=== PATIENT | male | born 1970 | race African-American/Black ===

== ENCOUNTER 2018-09-21 22:13 | Emergency (ER) | payer BC ==
[~2018-09-21] VITALS: Ht 185.4 cm; Wt 118.2 kg
[2018-09-21] MEDS ORDERED: PIOG30TA10 PO (22:25)
[2018-09-21] MEDS ORDERED: LISI-662 PO (22:25)
[2018-09-21] MEDS ORDERED: METF-960 PO (22:25)
[2018-09-21] MEDS ORDERED: AMLO-512 PO (22:25)
[2018-09-21] MEDS ORDERED: GLIP10 PO (22:25)
[2018-09-21] MEDS ORDERED: ATOR40TA28 PO (22:27)
[2018-09-21] MEDS ORDERED: ACETAMINOPHEN 500 MG TABLET PO ONE (23:00)
[2018-09-21] MEDS ORDERED: SODIUM CHLORIDE 0.9% 1,000 ML IV ONE (23:00)
[2018-09-22 00:08] LABS: INFLUENZA TYPE A NEGATIVE FOR TYPE A (NEGATIVE); INFLUENZA TYPE B NEGATIVE FOR TYPE B (NEGATIVE)
[2018-09-22] MEDS ORDERED: AZITHROMYCIN 250 MG TABLET PO ONE (00:15)
[2018-09-22] MEDS ORDERED: BENZONATATE 100 MG CAPSULE PO ONE (00:30)
[2018-09-22 00:55] VITALS: BP 148/97
== END 2018-09-22 01:00 | disposition home or self-care (01) ==
LOC: EMS 22:14
DX: J18.9 Pneumonia, unspecified organism (principal); E11.9 Type 2 diabetes mellitus without complications; E78.00 Pure hypercholesterolemia, unspecified; I10 Essential (primary) hypertension; Z79.899 Other long term (current) drug therapy; Z88.0 Allergy status to penicillin; Z88.8 Allergy status to other drugs, medicaments and biological substances; Z91.030 Bee allergy status
CPT/HCPCS: 71045; 87804; 99284; J7030

== ENCOUNTER 2020-12-25 10:47 | Inpatient (IN) | payer MEDICAID ==
[~2020-12-25] VITALS: Ht 188 cm; Wt 98.4 kg
[~2020-12-25 10:47] MED LIST: AMLO-258 PO; ATOR40TA28 PO; GLIP10 PO; LISI-894 PO; METF-960 PO; PIOG30TA10 PO
[2020-12-25 11:30] VITALS: BP 125/79
[2020-12-25] MEDS ORDERED: MELATONIN 5 MG TABLET PO PRN (12:30)
[2020-12-25] MEDS ORDERED: DEXTROSE 50%-WATER 25 GM/50 ML SYRINGE IVP PRN (12:45)
[2020-12-25] MEDS ORDERED: ALBUTEROL SULFATE HFA 90 MCG/PUFF 8 GM INHALER IH PRN (12:45)
[2020-12-25 13:12] LABS: GLUCOMETER DEV NAME(LOC) 2WR.2B; GLUCOSE,POINT OF CARE 226 MG/DL (70-110)
[2020-12-25] MEDS: DOCUSATE SODIUM 100 MG CAPSULE PO SCH ×2 (14:07→20:55)
[2020-12-25] MEDS: INSULIN LISPRO 100 UNITS/ML SQ PRN ×3 (15:01→21:02)
[2020-12-25 16:00] VITALS: BP 121/86
[2020-12-25] MEDS: GlipiZIDE 10 MG TABLET PO SCH (17:44)
[2020-12-25] MEDS: MetFORMIN HCL 500 MG TABLET PO SCH (17:44)
[2020-12-25] MEDS: RIVAROXABAN 15 MG TABLET PO SCH (17:45)
[2020-12-25 18:33] LABS: GLUCOMETER DEV NAME(LOC) 2WR.1C; GLUCOSE,POINT OF CARE 262 MG/DL (70-110)
[2020-12-25] MEDS: SENNA 187 MG TABLET PO SCH (20:55)
[2020-12-25] MEDS: FAMOTIDINE 20 MG TABLET PO SCH (20:55)
[2020-12-25] MEDS: ETHYL ALCOHOL 62% ANTISEPTIC NASAL INHALANT 0.6 ML AMPUL NASAL SCH (21:05)
[2020-12-26 05:29] LABS: GLUCOMETER DEV NAME(LOC) 2WR.1C; GLUCOSE,POINT OF CARE 183 MG/DL (70-110)
[2020-12-26 06:07] VITALS: BP 117/77
[2020-12-26 06:14] LABS: GLUCOMETER DEV NAME(LOC) 2WR.1C; GLUCOSE,POINT OF CARE 144 MG/DL (70-110)
[2020-12-26] MEDS ORDERED: CLOPIDOGREL BISULFATE 75 MG TABLET PO SCH (08:00)
[2020-12-26] MEDS: MetFORMIN HCL 500 MG TABLET PO SCH ×2 (08:07→17:18)
[2020-12-26] MEDS: GlipiZIDE 10 MG TABLET PO SCH ×2 (08:08→17:17)
[2020-12-26] MEDS: DOCUSATE SODIUM 100 MG CAPSULE PO SCH ×2 (08:08→20:37)
[2020-12-26] MEDS: RIVAROXABAN 15 MG TABLET PO SCH ×2 (08:08→17:17)
[2020-12-26] MEDS: AmLODIPine BESYLATE 10 MG TABLET PO SCH (08:08)
[2020-12-26] MEDS: PIOGLITAZONE HCL 30 MG TABLET PO SCH (08:09)
[2020-12-26] MEDS: LISINOPRIL 20 MG TABLET PO SCH (08:09)
[2020-12-26] MEDS: FAMOTIDINE 20 MG TABLET PO SCH ×2 (08:09→20:37)
[2020-12-26] MEDS: PRAVASTATIN SODIUM 10 MG TABLET PO SCH (08:09)
[2020-12-26] MEDS: ETHYL ALCOHOL 62% ANTISEPTIC NASAL INHALANT 0.6 ML AMPUL NASAL SCH ×2 (08:12→20:37)
[2020-12-26] MEDS: UBIDECARENONE 100 MG CAPSULE PO SCH (09:00)
[2020-12-26] MEDS: INSULIN LISPRO 100 UNITS/ML SQ PRN (09:18)
[2020-12-26 12:03] LABS: BASOPHILS % (AUTO) 0.6 % (0.0-2.0); EOSINOPHILS % (AUTO) 5.9 % (1.0-6.0); HEMATOCRIT 38.7 % (41-53); HEMOGLOBIN 12.5 g/dL (13.5-17.5); LYMPHOCYTES # (AUTO) 1.6 K/uL (1.0-4.8); MEAN CORPUSCULAR HEMOGLOBIN 26.9 pg (26.0-34.0); MEAN CORPUSCULAR HGB CONC 32.4 G/dL (31.0-37.0); MEAN CORPUSCULAR VOLUME 83 fL (80-100); MONOCYTES # (AUTO) 0.5 K/uL (0.1-1.0); NEUTROPHILS # (AUTO) 2.5 K/uL (1.8-7.7); NEUTROPHILS % (AUTO) 51.5 % (40.0-70.0); PLATELET COUNT (AUTO) 170 K/uL (150-450); RED BLOOD CELL COUNT(AUTO) 4.65 MIL/uL (4.50-5.90); RED CELL DISTRIBUTION WIDTH 13.5 % (11.5-14.5)
[2020-12-26 12:23] LABS: GLUCOMETER DEV NAME(LOC) 2WR.2B; GLUCOSE,POINT OF CARE 123 MG/DL (70-110)
[2020-12-26 12:36] LABS: ALANINE AMINOTRANSFERASE 29 U/L (12-78); ALKALINE PHOSPHATASE 109 U/L (46-116); ANION GAP 11 mmol/L (8-16); ASPARTATE AMINOTRANSFERASE 15 U/L (15-37); BILIRUBIN,TOTAL 0.3 mg/dL (0.1-1.0); CALCIUM, TOTAL 9.1 mg/dL (8.8-10.5); CARBON DIOXIDE 27 mmol/L (22-29); CHLORIDE 101 mmol/L (98-107); CHOL/HDL RATIO 7.1 (4.2-7.3); CHOLESTEROL 283 mg/dL (131-200); CREATINE KINASE, TOTAL ONLY 135 U/L (39-308); CREATININE 1.07 mg/dL (0.60-1.30); GLOMERULAR FILTR. RATE CALC > 60 mL/min (>60); GLUCOSE,RANDOM 132 mg/dL (70-110); HDL CHOLESTEROL 40 mg/dL (40-60); LDL CHOL (CALC.) 225 mg/dL (0-130); POTASSIUM 5.1 mmol/L (3.5-5.1); SODIUM SERUM 139 mmol/L (136-145); TOTAL PROTEIN, SERUM 7.2 g/dL (6.4-8.2); TRIGLYCERIDES 88 mg/dL (15-150); UREA NITROGEN, BLOOD 22 mg/dL (7-18)
[2020-12-26] MEDS: ACETAMINOPHEN 325 MG TABLET PO PRN ×2 (14:18→18:59)
[2020-12-26 15:19] VITALS: BP 121/62
[2020-12-26] MEDS: SENNA 187 MG TABLET PO SCH (20:37)
[2020-12-27 05:28] LABS: GLUCOMETER DEV NAME(LOC) 2WR.1C; GLUCOSE,POINT OF CARE 81 MG/DL (70-110)
[2020-12-27 05:48] VITALS: BP 115/73
[2020-12-27 07:17] LABS: GLUCOMETER DEV NAME(LOC) 2WR.2B; GLUCOSE,POINT OF CARE 68 MG/DL (70-110)
[2020-12-27] MEDS: MetFORMIN HCL 500 MG TABLET PO SCH ×2 (08:36→17:11)
[2020-12-27] MEDS: PRAVASTATIN SODIUM 10 MG TABLET PO SCH (08:37)
[2020-12-27] MEDS: FAMOTIDINE 20 MG TABLET PO SCH ×2 (08:37→20:55)
[2020-12-27] MEDS: PIOGLITAZONE HCL 30 MG TABLET PO SCH (08:37)
[2020-12-27] MEDS: RIVAROXABAN 15 MG TABLET PO SCH ×2 (08:38→17:11)
[2020-12-27] MEDS: DOCUSATE SODIUM 100 MG CAPSULE PO SCH ×2 (08:38→20:55)
[2020-12-27] MEDS: AmLODIPine BESYLATE 10 MG TABLET PO SCH (08:38)
[2020-12-27] MEDS: GlipiZIDE 10 MG TABLET PO SCH ×2 (08:38→17:11)
[2020-12-27] MEDS: LISINOPRIL 20 MG TABLET PO SCH (08:39)
[2020-12-27] MEDS: ETHYL ALCOHOL 62% ANTISEPTIC NASAL INHALANT 0.6 ML AMPUL NASAL SCH ×2 (08:39→20:55)
[2020-12-27] MEDS ORDERED: UBIDECARENONE 100 MG CAPSULE PO SCH (09:00)
[2020-12-27] MEDS: UBIDECARENONE 100 MG CAPSULE PO SCH (09:00)
[2020-12-27 09:20] VITALS: BP 120/66
[2020-12-27 17:00] VITALS: BP 96/65
[2020-12-27 18:20] LABS: GLUCOMETER DEV NAME(LOC) 2WR.1C; GLUCOSE,POINT OF CARE 63 MG/DL (70-110)
[2020-12-27 18:20] LABS: GLUCOMETER DEV NAME(LOC) 2WR.1C; GLUCOSE,POINT OF CARE 87 MG/DL (70-110)
[2020-12-27 19:15] LABS: GLUCOMETER DEV NAME(LOC) 2WR.2B; GLUCOSE,POINT OF CARE 74 MG/DL (70-110)
[2020-12-27 19:15] LABS: GLUCOMETER DEV NAME(LOC) 2WR.2B; GLUCOSE,POINT OF CARE 72 MG/DL (70-110)
[2020-12-27] MEDS: SENNA 187 MG TABLET PO SCH (20:56)
[2020-12-27 21:00] LABS: GLUCOMETER DEV NAME(LOC) 2WR.2B; GLUCOSE,POINT OF CARE 128 MG/DL (70-110)
[2020-12-27 23:23] LABS: GLUCOMETER DEV NAME(LOC) 2WR.1C; GLUCOSE,POINT OF CARE 120 MG/DL (70-110)
[2020-12-28 04:50] VITALS: BP 131/70
[2020-12-28 05:45] LABS: GLUCOMETER DEV NAME(LOC) 2WR.1C; GLUCOSE,POINT OF CARE 71 MG/DL (70-110)
[2020-12-28 08:00] VITALS: BP 119/78
[2020-12-28] MEDS: GlipiZIDE 10 MG TABLET PO SCH ×2 (08:30→17:23)
[2020-12-28] MEDS: RIVAROXABAN 15 MG TABLET PO SCH ×2 (08:30→17:30)
[2020-12-28] MEDS: MetFORMIN HCL 500 MG TABLET PO SCH ×2 (08:30→17:31)
[2020-12-28] MEDS: PIOGLITAZONE HCL 30 MG TABLET PO SCH (08:31)
[2020-12-28] MEDS: DOCUSATE SODIUM 100 MG CAPSULE PO SCH ×2 (08:31→20:33)
[2020-12-28] MEDS: AmLODIPine BESYLATE 10 MG TABLET PO SCH (08:31)
[2020-12-28] MEDS: UBIDECARENONE 100 MG CAPSULE PO SCH (08:31)
[2020-12-28] MEDS: ETHYL ALCOHOL 62% ANTISEPTIC NASAL INHALANT 0.6 ML AMPUL NASAL SCH ×2 (08:31→20:33)
[2020-12-28] MEDS: LISINOPRIL 20 MG TABLET PO SCH (08:32)
[2020-12-28] MEDS: FAMOTIDINE 20 MG TABLET PO SCH ×2 (08:32→20:33)
[2020-12-28] MEDS: PRAVASTATIN SODIUM 10 MG TABLET PO SCH (08:32)
[2020-12-28 08:40] VITALS: BP 151/84
[2020-12-28] MEDS: ONDANSETRON HCL 4 MG TABLET PO PRN (13:03)
[2020-12-28 14:01] LABS: GLUCOMETER DEV NAME(LOC) 2WR.2B; GLUCOSE,POINT OF CARE 89 MG/DL (70-110)
[2020-12-28 16:10] VITALS: BP 137/85
[2020-12-28 17:45] LABS: GLUCOMETER DEV NAME(LOC) 2WR.2B; GLUCOSE,POINT OF CARE 100 MG/DL (70-110)
[2020-12-28] MEDS: SENNA 187 MG TABLET PO SCH (20:33)
[2020-12-28 22:11] LABS: GLUCOMETER DEV NAME(LOC) 2WR.2B; GLUCOSE,POINT OF CARE 125 MG/DL (70-110)
[2020-12-29 01:30] VITALS: BP 120/81
[2020-12-29 05:43] LABS: GLUCOMETER DEV NAME(LOC) 2WR.2B; GLUCOSE,POINT OF CARE 103 MG/DL (70-110)
[2020-12-29 08:00] VITALS: BP 127/71
[2020-12-29] MEDS: UBIDECARENONE 100 MG CAPSULE PO SCH (08:13)
[2020-12-29] MEDS: LISINOPRIL 20 MG TABLET PO SCH (08:13)
[2020-12-29] MEDS: ETHYL ALCOHOL 62% ANTISEPTIC NASAL INHALANT 0.6 ML AMPUL NASAL SCH ×2 (08:13→21:09)
[2020-12-29] MEDS: PRAVASTATIN SODIUM 10 MG TABLET PO SCH (08:14)
[2020-12-29] MEDS: FAMOTIDINE 20 MG TABLET PO SCH ×2 (08:14→21:09)
[2020-12-29] MEDS: PIOGLITAZONE HCL 30 MG TABLET PO SCH (08:14)
[2020-12-29] MEDS: GlipiZIDE 10 MG TABLET PO SCH ×2 (08:14→17:27)
[2020-12-29] MEDS: MetFORMIN HCL 500 MG TABLET PO SCH ×2 (08:14→17:27)
[2020-12-29] MEDS: RIVAROXABAN 15 MG TABLET PO SCH ×2 (08:14→17:27)
[2020-12-29] MEDS: AmLODIPine BESYLATE 10 MG TABLET PO SCH (08:14)
[2020-12-29] MEDS: DOCUSATE SODIUM 100 MG CAPSULE PO SCH ×2 (08:19→21:09)
[2020-12-29] MEDS: INSULIN LISPRO 100 UNITS/ML SQ PRN (12:39)
[2020-12-29 12:45] LABS: GLUCOMETER DEV NAME(LOC) 2WR.2B; GLUCOSE,POINT OF CARE 188 MG/DL (70-110)
[2020-12-29 16:30] VITALS: BP 105/67
[2020-12-29 19:18] LABS: GLUCOMETER DEV NAME(LOC) 2WR.2B; GLUCOSE,POINT OF CARE 122 MG/DL (70-110)
[2020-12-29] MEDS: SENNA 187 MG TABLET PO SCH (21:09)
[2020-12-30 00:30] VITALS: BP 109/67
[2020-12-30 05:22] LABS: GLUCOMETER DEV NAME(LOC) 2WR.1C; GLUCOSE,POINT OF CARE 95 MG/DL (70-110)
[2020-12-30 06:29] LABS: GLUCOMETER DEV NAME(LOC) 2WR.1C; GLUCOSE,POINT OF CARE 85 MG/DL (70-110)
[2020-12-30 08:07] VITALS: BP 119/76
[2020-12-30] MEDS: MetFORMIN HCL 500 MG TABLET PO SCH ×2 (08:12→18:34)
[2020-12-30] MEDS: ETHYL ALCOHOL 62% ANTISEPTIC NASAL INHALANT 0.6 ML AMPUL NASAL SCH ×2 (08:12→20:50)
[2020-12-30] MEDS: AmLODIPine BESYLATE 10 MG TABLET PO SCH (08:12)
[2020-12-30] MEDS: LISINOPRIL 20 MG TABLET PO SCH (08:13)
[2020-12-30] MEDS: UBIDECARENONE 100 MG CAPSULE PO SCH (08:13)
[2020-12-30] MEDS: RIVAROXABAN 15 MG TABLET PO SCH ×2 (08:13→18:34)
[2020-12-30] MEDS: FAMOTIDINE 20 MG TABLET PO SCH ×2 (08:13→20:50)
[2020-12-30] MEDS: PIOGLITAZONE HCL 30 MG TABLET PO SCH (08:13)
[2020-12-30] MEDS: GlipiZIDE 10 MG TABLET PO SCH ×2 (08:13→16:30)
[2020-12-30] MEDS: PRAVASTATIN SODIUM 10 MG TABLET PO SCH (08:14)
[2020-12-30] MEDS: DOCUSATE SODIUM 100 MG CAPSULE PO SCH ×2 (08:14→20:50)
[2020-12-30 12:57] LABS: GLUCOMETER DEV NAME(LOC) 2WR.2B; GLUCOSE,POINT OF CARE 115 MG/DL (70-110)
[2020-12-30 17:00] VITALS: BP 121/74
[2020-12-30] MEDS: INSULIN LISPRO 100 UNITS/ML SQ PRN (18:35)
[2020-12-30 19:52] LABS: GLUCOMETER DEV NAME(LOC) 2WR.2B; GLUCOSE,POINT OF CARE 155 MG/DL (70-110)
[2020-12-30] MEDS: SENNA 187 MG TABLET PO SCH (20:51)
[2020-12-30 22:24] LABS: GLUCOMETER DEV NAME(LOC) 2WR.2B; GLUCOSE,POINT OF CARE 90 MG/DL (70-110)
[2020-12-31 00:19] VITALS: BP 98/63
[2020-12-31 06:03] LABS: GLUCOMETER DEV NAME(LOC) 2WR.2B; GLUCOSE,POINT OF CARE 76 MG/DL (70-110)
[2020-12-31] MEDS: MetFORMIN HCL 500 MG TABLET PO SCH ×2 (08:06→18:25)
[2020-12-31] MEDS: RIVAROXABAN 15 MG TABLET PO SCH ×2 (08:06→18:25)
[2020-12-31] MEDS: GlipiZIDE 10 MG TABLET PO SCH ×2 (08:06→16:30)
[2020-12-31] MEDS: UBIDECARENONE 100 MG CAPSULE PO SCH (09:07)
[2020-12-31] MEDS: ETHYL ALCOHOL 62% ANTISEPTIC NASAL INHALANT 0.6 ML AMPUL NASAL SCH ×2 (09:07→21:34)
[2020-12-31] MEDS: LISINOPRIL 20 MG TABLET PO SCH (09:08)
[2020-12-31] MEDS: AmLODIPine BESYLATE 10 MG TABLET PO SCH (09:08)
[2020-12-31] MEDS: DOCUSATE SODIUM 100 MG CAPSULE PO SCH (09:08)
[2020-12-31] MEDS: FAMOTIDINE 20 MG TABLET PO SCH ×2 (09:09→21:33)
[2020-12-31] MEDS: PRAVASTATIN SODIUM 10 MG TABLET PO SCH (09:09)
[2020-12-31] MEDS: INSULIN LISPRO 100 UNITS/ML SQ PRN (12:25)
[2020-12-31 12:39] VITALS: BP 114/70
[2020-12-31 14:20] LABS: GLUCOMETER DEV NAME(LOC) 2WR.1C; GLUCOSE,POINT OF CARE 167 MG/DL (70-110)
[2020-12-31 16:05] VITALS: BP 97/70
[2020-12-31 18:09] LABS: GLUCOMETER DEV NAME(LOC) 2WR.2B; GLUCOSE,POINT OF CARE 60 MG/DL (70-110)
[2020-12-31 18:09] LABS: GLUCOMETER DEV NAME(LOC) 2WR.2B; GLUCOSE,POINT OF CARE 71 MG/DL (70-110)
[2020-12-31] MEDS: MAGNESIUM HYDROXIDE SUSPENSION 30 ML UDCUP PO PRN (18:25)
[2020-12-31] MEDS: ACETAMINOPHEN 325 MG TABLET PO PRN (18:26)
[2020-12-31 18:55] LABS: GLUCOMETER DEV NAME(LOC) 2WR.2B; GLUCOSE,POINT OF CARE 90 MG/DL (70-110)
[2020-12-31 19:26] VITALS: BP 132/75
[2020-12-31] MEDS: SENNA 187 MG TABLET PO SCH (21:33)
[2020-12-31] MEDS: DOCUSATE SODIUM 250 MG CAPSULE PO SCH (21:39)
[2020-12-31 22:38] LABS: GLUCOMETER DEV NAME(LOC) 2WR.1C; GLUCOSE,POINT OF CARE 83 MG/DL (70-110)
[2021-01-01 05:49] VITALS: BP 103/55
[2021-01-01] MEDS: MetFORMIN HCL 500 MG TABLET PO SCH ×2 (07:16→17:30)
[2021-01-01] MEDS: RIVAROXABAN 15 MG TABLET PO SCH ×2 (07:16→17:30)
[2021-01-01] MEDS: GlipiZIDE 10 MG TABLET PO SCH (07:16)
[2021-01-01] MEDS ORDERED: DOCUSATE SODIUM 250 MG CAPSULE PO SCH (09:00)
[2021-01-01 09:10] VITALS: BP 108/58
[2021-01-01] MEDS: UBIDECARENONE 100 MG CAPSULE PO SCH (09:51)
[2021-01-01] MEDS: DOCUSATE SODIUM 250 MG CAPSULE PO SCH ×2 (09:51→20:14)
[2021-01-01] MEDS: AmLODIPine BESYLATE 10 MG TABLET PO SCH (09:51)
[2021-01-01] MEDS: LISINOPRIL 20 MG TABLET PO SCH (09:52)
[2021-01-01] MEDS: FAMOTIDINE 20 MG TABLET PO SCH ×2 (09:52→20:14)
[2021-01-01] MEDS: PRAVASTATIN SODIUM 10 MG TABLET PO SCH (09:52)
[2021-01-01] MEDS: ETHYL ALCOHOL 62% ANTISEPTIC NASAL INHALANT 0.6 ML AMPUL NASAL SCH ×2 (09:52→20:14)
[2021-01-01] MEDS: ACETAMINOPHEN 325 MG TABLET PO PRN (13:12)
[2021-01-01 15:15] LABS: GLUCOMETER DEV NAME(LOC) 2WR.1C; GLUCOSE,POINT OF CARE 101 MG/DL (70-110)
[2021-01-01 15:15] LABS: GLUCOMETER DEV NAME(LOC) 2WR.2B; GLUCOSE,POINT OF CARE 120 MG/DL (70-110)
[2021-01-01 16:10] VITALS: BP 106/81
[2021-01-01] MEDS: MAGNESIUM HYDROXIDE SUSPENSION 30 ML UDCUP PO PRN (17:46)
[2021-01-01 18:26] LABS: GLUCOMETER DEV NAME(LOC) 2WR.1C; GLUCOSE,POINT OF CARE 100 MG/DL (70-110)
[2021-01-01 18:26] LABS: GLUCOMETER DEV NAME(LOC) 2WR.2B; GLUCOSE,POINT OF CARE 68 MG/DL (70-110)
[2021-01-01] MEDS: SENNA 187 MG TABLET PO SCH (20:14)
[2021-01-01 22:11] LABS: GLUCOMETER DEV NAME(LOC) 2WR.2B; GLUCOSE,POINT OF CARE 104 MG/DL (70-110)
[2021-01-02 05:30] VITALS: BP 127/68
[2021-01-02 05:53] LABS: GLUCOMETER DEV NAME(LOC) 2WR.2B; GLUCOSE,POINT OF CARE 104 MG/DL (70-110)
[2021-01-02] MEDS: DOCUSATE SODIUM 250 MG CAPSULE PO SCH ×2 (08:48→21:36)
[2021-01-02] MEDS: LISINOPRIL 20 MG TABLET PO SCH (08:48)
[2021-01-02] MEDS: FAMOTIDINE 20 MG TABLET PO SCH ×2 (08:48→21:36)
[2021-01-02] MEDS: AmLODIPine BESYLATE 10 MG TABLET PO SCH (08:49)
[2021-01-02] MEDS: ETHYL ALCOHOL 62% ANTISEPTIC NASAL INHALANT 0.6 ML AMPUL NASAL SCH ×2 (08:49→21:37)
[2021-01-02] MEDS: UBIDECARENONE 100 MG CAPSULE PO SCH (08:49)
[2021-01-02] MEDS: PRAVASTATIN SODIUM 10 MG TABLET PO SCH (08:49)
[2021-01-02] MEDS: MetFORMIN HCL 500 MG TABLET PO SCH ×2 (08:49→17:41)
[2021-01-02] MEDS: RIVAROXABAN 15 MG TABLET PO SCH ×2 (08:55→17:41)
[2021-01-02 10:34] VITALS: BP 119/74
[2021-01-02] MEDS: INSULIN LISPRO 100 UNITS/ML SQ PRN ×2 (12:14→17:43)
[2021-01-02] MEDS: MAGNESIUM HYDROXIDE SUSPENSION 30 ML UDCUP PO PRN (12:18)
[2021-01-02 13:56] LABS: GLUCOMETER DEV NAME(LOC) 2WR.1C; GLUCOSE,POINT OF CARE 155 MG/DL (70-110)
[2021-01-02 16:43] VITALS: BP 124/74
[2021-01-02 17:36] LABS: GLUCOMETER DEV NAME(LOC) 2WR.2B; GLUCOSE,POINT OF CARE 146 MG/DL (70-110)
[2021-01-02] MEDS: SENNA 187 MG TABLET PO SCH (21:37)
[2021-01-02 22:00] LABS: GLUCOMETER DEV NAME(LOC) 2WR.1C; GLUCOSE,POINT OF CARE 130 MG/DL (70-110)
[2021-01-03 01:00] VITALS: BP 125/75
[2021-01-03 05:53] LABS: GLUCOMETER DEV NAME(LOC) 2WR.2B; GLUCOSE,POINT OF CARE 102 MG/DL (70-110)
[2021-01-03] MEDS ORDERED: MAGNESIUM CITRATE 300 ML ORAL SOLUTION PO ONE (08:30)
[2021-01-03 09:01] VITALS: BP 112/67
[2021-01-03] MEDS: FAMOTIDINE 20 MG TABLET PO SCH ×2 (09:06→20:02)
[2021-01-03] MEDS: MetFORMIN HCL 500 MG TABLET PO SCH ×2 (09:06→18:07)
[2021-01-03] MEDS: LISINOPRIL 20 MG TABLET PO SCH (09:06)
[2021-01-03] MEDS: UBIDECARENONE 100 MG CAPSULE PO SCH (09:06)
[2021-01-03] MEDS: DOCUSATE SODIUM 250 MG CAPSULE PO SCH ×2 (09:06→20:02)
[2021-01-03] MEDS: PRAVASTATIN SODIUM 10 MG TABLET PO SCH (09:07)
[2021-01-03] MEDS: AmLODIPine BESYLATE 10 MG TABLET PO SCH (09:07)
[2021-01-03] MEDS: RIVAROXABAN 15 MG TABLET PO SCH ×2 (09:07→18:07)
[2021-01-03] MEDS: ETHYL ALCOHOL 62% ANTISEPTIC NASAL INHALANT 0.6 ML AMPUL NASAL SCH ×2 (09:12→20:04)
[2021-01-03] MEDS: ONDANSETRON HCL 4 MG TABLET PO PRN (11:38)
[2021-01-03] MEDS: INSULIN LISPRO 100 UNITS/ML SQ PRN ×2 (12:25→20:15)
[2021-01-03 14:13] LABS: GLUCOMETER DEV NAME(LOC) 2WR.2B; GLUCOSE,POINT OF CARE 155 MG/DL (70-110)
[2021-01-03] MEDS: MAGNESIUM HYDROXIDE SUSPENSION 30 ML UDCUP PO PRN ×2 (14:18→20:02)
[2021-01-03 16:05] VITALS: BP 108/51
[2021-01-03] MEDS: SENNA 187 MG TABLET PO SCH (20:02)
[2021-01-03 21:24] LABS: GLUCOMETER DEV NAME(LOC) 2WR.1C; GLUCOSE,POINT OF CARE 105 MG/DL (70-110)
[2021-01-03 21:24] LABS: GLUCOMETER DEV NAME(LOC) 2WR.1C; GLUCOSE,POINT OF CARE 142 MG/DL (70-110)
[2021-01-04 01:47] VITALS: BP 117/66
[2021-01-04] MEDS: MAGNESIUM HYDROXIDE SUSPENSION 30 ML UDCUP PO PRN ×2 (05:35→11:51)
[2021-01-04 05:51] LABS: GLUCOMETER DEV NAME(LOC) 2WR.2B; GLUCOSE,POINT OF CARE 127 MG/DL (70-110)
[2021-01-04] MEDS: LISINOPRIL 20 MG TABLET PO SCH (09:28)
[2021-01-04] MEDS: MetFORMIN HCL 500 MG TABLET PO SCH ×2 (09:28→17:13)
[2021-01-04] MEDS: FAMOTIDINE 20 MG TABLET PO SCH ×2 (09:28→20:15)
[2021-01-04] MEDS: DOCUSATE SODIUM 250 MG CAPSULE PO SCH ×2 (09:28→20:15)
[2021-01-04] MEDS: RIVAROXABAN 15 MG TABLET PO SCH ×2 (09:29→17:13)
[2021-01-04] MEDS: UBIDECARENONE 100 MG CAPSULE PO SCH (09:29)
[2021-01-04] MEDS: PRAVASTATIN SODIUM 10 MG TABLET PO SCH (09:29)
[2021-01-04] MEDS: ETHYL ALCOHOL 62% ANTISEPTIC NASAL INHALANT 0.6 ML AMPUL NASAL SCH ×2 (09:30→20:16)
[2021-01-04] MEDS: AmLODIPine BESYLATE 10 MG TABLET PO SCH (09:34)
[2021-01-04 10:00] VITALS: BP 124/73
[2021-01-04 12:42] LABS: GLUCOMETER DEV NAME(LOC) 2WR.2B; GLUCOSE,POINT OF CARE 166 MG/DL (70-110)
[2021-01-04] MEDS ORDERED: POLY17PO47 PO (13:22)
[2021-01-04] MEDS: INSULIN LISPRO 100 UNITS/ML SQ PRN ×2 (13:24→20:20)
[2021-01-04 16:05] VITALS: BP 105/68
[2021-01-04 18:19] LABS: GLUCOMETER DEV NAME(LOC) 2WR.1C; GLUCOSE,POINT OF CARE 138 MG/DL (70-110)
[2021-01-04] MEDS: SENNA 187 MG TABLET PO SCH (20:15)
[2021-01-04 21:19] LABS: GLUCOMETER DEV NAME(LOC) 2WR.1C; GLUCOSE,POINT OF CARE 181 MG/DL (70-110)
[2021-01-05 03:47] VITALS: BP_SYST 105; BP_SYST 120; BP_DIAS 68
[2021-01-05 06:04] LABS: GLUCOMETER DEV NAME(LOC) 2WR.2B; GLUCOSE,POINT OF CARE 138 MG/DL (70-110)
[2021-01-05] MEDS: UBIDECARENONE 100 MG CAPSULE PO SCH (09:08)
[2021-01-05] MEDS: DOCUSATE SODIUM 250 MG CAPSULE PO SCH ×3 (09:09→20:29)
[2021-01-05] MEDS: MetFORMIN HCL 500 MG TABLET PO SCH ×2 (09:09→17:41)
[2021-01-05] MEDS: LISINOPRIL 20 MG TABLET PO SCH (09:10)
[2021-01-05] MEDS: AmLODIPine BESYLATE 10 MG TABLET PO SCH (09:10)
[2021-01-05] MEDS: FAMOTIDINE 20 MG TABLET PO SCH ×2 (09:10→20:26)
[2021-01-05] MEDS: RIVAROXABAN 15 MG TABLET PO SCH ×2 (09:10→17:41)
[2021-01-05] MEDS: PRAVASTATIN SODIUM 10 MG TABLET PO SCH (09:10)
[2021-01-05] MEDS: ETHYL ALCOHOL 62% ANTISEPTIC NASAL INHALANT 0.6 ML AMPUL NASAL SCH ×2 (09:16→20:26)
[2021-01-05 10:33] VITALS: BP 101/67
[2021-01-05] MEDS: POLYETHYLENE GLYCOL 3350 17 GM PACKET PO SCH (10:35)
[2021-01-05 11:54] LABS: GLUCOMETER DEV NAME(LOC) 2WR.2B; GLUCOSE,POINT OF CARE 186 MG/DL (70-110)
[2021-01-05] MEDS: INSULIN LISPRO 100 UNITS/ML SQ PRN (12:39)
[2021-01-05 16:05] VITALS: BP 98/57
[2021-01-05 20:26] LABS: GLUCOMETER DEV NAME(LOC) 2WR.1C; GLUCOSE,POINT OF CARE 111 MG/DL (70-110)
[2021-01-05] MEDS: SENNA 187 MG TABLET PO SCH ×2 (20:26→20:29)
[2021-01-05 20:57] LABS: GLUCOMETER DEV NAME(LOC) 2WR.1C; GLUCOSE,POINT OF CARE 140 MG/DL (70-110)
[2021-01-06 00:45] VITALS: BP 94/56
[2021-01-06 06:14] LABS: GLUCOMETER DEV NAME(LOC) 2WR.2B; GLUCOSE,POINT OF CARE 91 MG/DL (70-110)
[2021-01-06] MEDS: DOCUSATE SODIUM 250 MG CAPSULE PO SCH ×3 (08:09→21:00)
[2021-01-06] MEDS: MetFORMIN HCL 500 MG TABLET PO SCH ×2 (08:09→17:24)
[2021-01-06] MEDS: RIVAROXABAN 15 MG TABLET PO SCH ×2 (08:09→17:24)
[2021-01-06] MEDS: PRAVASTATIN SODIUM 10 MG TABLET PO SCH (08:09)
[2021-01-06] MEDS: AmLODIPine BESYLATE 10 MG TABLET PO SCH (08:09)
[2021-01-06] MEDS: LISINOPRIL 20 MG TABLET PO SCH (08:09)
[2021-01-06] MEDS: UBIDECARENONE 100 MG CAPSULE PO SCH (08:10)
[2021-01-06] MEDS: POLYETHYLENE GLYCOL 3350 17 GM PACKET PO SCH (08:13)
[2021-01-06] MEDS: FAMOTIDINE 20 MG TABLET PO SCH ×2 (08:14→21:00)
[2021-01-06] MEDS: ETHYL ALCOHOL 62% ANTISEPTIC NASAL INHALANT 0.6 ML AMPUL NASAL SCH ×2 (09:00→21:01)
[2021-01-06 12:45] LABS: GLUCOMETER DEV NAME(LOC) 2WR.2B; GLUCOSE,POINT OF CARE 123 MG/DL (70-110)
[2021-01-06 15:11] VITALS: BP 105/69
[2021-01-06 16:16] VITALS: BP 103/62
[2021-01-06 17:51] LABS: GLUCOMETER DEV NAME(LOC) 2WR.1C; GLUCOSE,POINT OF CARE 137 MG/DL (70-110)
[2021-01-06] MEDS: SENNA 187 MG TABLET PO SCH (21:00)
[2021-01-06 22:14] LABS: GLUCOMETER DEV NAME(LOC) 2WR.2B; GLUCOSE,POINT OF CARE 88 MG/DL (70-110)
[2021-01-07 05:55] VITALS: BP 95/60
[2021-01-07 06:09] LABS: GLUCOMETER DEV NAME(LOC) 2WR.1C; GLUCOSE,POINT OF CARE 111 MG/DL (70-110)
[2021-01-07] MEDS: RIVAROXABAN 15 MG TABLET PO SCH ×2 (08:23→17:28)
[2021-01-07] MEDS: DOCUSATE SODIUM 250 MG CAPSULE PO SCH ×2 (08:23→20:10)
[2021-01-07] MEDS: PRAVASTATIN SODIUM 10 MG TABLET PO SCH (08:23)
[2021-01-07] MEDS: MetFORMIN HCL 500 MG TABLET PO SCH ×2 (08:23→17:28)
[2021-01-07] MEDS: POLYETHYLENE GLYCOL 3350 17 GM PACKET PO SCH (08:23)
[2021-01-07] MEDS: UBIDECARENONE 100 MG CAPSULE PO SCH (08:23)
[2021-01-07] MEDS: AmLODIPine BESYLATE 10 MG TABLET PO SCH (08:23)
[2021-01-07] MEDS: FAMOTIDINE 20 MG TABLET PO SCH ×2 (08:24→20:10)
[2021-01-07] MEDS: LISINOPRIL 20 MG TABLET PO SCH (08:24)
[2021-01-07] MEDS: ETHYL ALCOHOL 62% ANTISEPTIC NASAL INHALANT 0.6 ML AMPUL NASAL SCH ×2 (10:10→20:10)
[2021-01-07 12:17] LABS: GLUCOMETER DEV NAME(LOC) 2WR.1C; GLUCOSE,POINT OF CARE 142 MG/DL (70-110)
[2021-01-07] MEDS: INSULIN LISPRO 100 UNITS/ML SQ PRN (12:31)
[2021-01-07 14:24] VITALS: BP 115/75
[2021-01-07 16:00] VITALS: BP 101/55
[2021-01-07 17:50] LABS: GLUCOMETER DEV NAME(LOC) 2WR.1C; GLUCOSE,POINT OF CARE 91 MG/DL (70-110)
[2021-01-07] MEDS: SENNA 187 MG TABLET PO SCH (20:10)
[2021-01-07 21:19] LABS: GLUCOMETER DEV NAME(LOC) 2WR.1C; GLUCOSE,POINT OF CARE 94 MG/DL (70-110)
[2021-01-07] MEDS ORDERED: DOCU-270 PO (21:50)
[2021-01-07] MEDS ORDERED: PRAV10TA39 PO (21:50)
[2021-01-07] MEDS ORDERED: SENN8.6T90 PO (21:50)
[2021-01-07] MEDS ORDERED: FAMO20 PO (21:50)
[2021-01-07] MEDS ORDERED: UBID10CA PO (21:50)
[2021-01-07] MEDS ORDERED: RIVA15TA PO (21:50)
[2021-01-07] MEDS ORDERED: UBID100C44 PO (21:51)
[2021-01-08 05:58] LABS: GLUCOMETER DEV NAME(LOC) 2WR.2B; GLUCOSE,POINT OF CARE 104 MG/DL (70-110)
[2021-01-08 06:00] VITALS: BP 110/71
[2021-01-08] MEDS: UBIDECARENONE 100 MG CAPSULE PO SCH (08:23)
[2021-01-08] MEDS: LISINOPRIL 20 MG TABLET PO SCH (08:23)
[2021-01-08] MEDS: DOCUSATE SODIUM 250 MG CAPSULE PO SCH ×2 (08:23→20:34)
[2021-01-08] MEDS: MetFORMIN HCL 500 MG TABLET PO SCH ×2 (08:24→17:40)
[2021-01-08] MEDS: RIVAROXABAN 15 MG TABLET PO SCH ×2 (08:24→17:40)
[2021-01-08] MEDS: POLYETHYLENE GLYCOL 3350 17 GM PACKET PO SCH (08:24)
[2021-01-08] MEDS: FAMOTIDINE 20 MG TABLET PO SCH ×2 (08:24→20:34)
[2021-01-08] MEDS: AmLODIPine BESYLATE 10 MG TABLET PO SCH (08:24)
[2021-01-08] MEDS: PRAVASTATIN SODIUM 10 MG TABLET PO SCH (08:24)
[2021-01-08] MEDS: ETHYL ALCOHOL 62% ANTISEPTIC NASAL INHALANT 0.6 ML AMPUL NASAL SCH ×2 (08:25→20:29)
[2021-01-08 09:05] VITALS: BP 116/78
[2021-01-08] MEDS: INSULIN LISPRO 100 UNITS/ML SQ PRN ×2 (12:17→17:10)
[2021-01-08 12:29] LABS: GLUCOMETER DEV NAME(LOC) 2WR.2B; GLUCOSE,POINT OF CARE 225 MG/DL (70-110)
[2021-01-08 16:02] VITALS: BP 93/65
[2021-01-08] MEDS: SENNA 187 MG TABLET PO SCH (20:34)
[2021-01-08 22:02] LABS: GLUCOMETER DEV NAME(LOC) 2WR.2B; GLUCOSE,POINT OF CARE 104 MG/DL (70-110)
[2021-01-09 05:18] LABS: GLUCOMETER DEV NAME(LOC) 2WR.1C; GLUCOSE,POINT OF CARE 159 MG/DL (70-110)
[2021-01-09 05:30] VITALS: BP 109/60
[2021-01-09 06:06] LABS: GLUCOMETER DEV NAME(LOC) 2WR.1C; GLUCOSE,POINT OF CARE 106 MG/DL (70-110)
[2021-01-09] MEDS: MetFORMIN HCL 500 MG TABLET PO SCH ×2 (08:13→17:47)
[2021-01-09] MEDS: UBIDECARENONE 100 MG CAPSULE PO SCH (08:13)
[2021-01-09] MEDS: FAMOTIDINE 20 MG TABLET PO SCH ×3 (08:14→21:00)
[2021-01-09] MEDS: DOCUSATE SODIUM 250 MG CAPSULE PO SCH ×3 (08:15→21:00)
[2021-01-09] MEDS: LISINOPRIL 20 MG TABLET PO SCH (08:15)
[2021-01-09] MEDS: POLYETHYLENE GLYCOL 3350 17 GM PACKET PO SCH (08:15)
[2021-01-09] MEDS: AmLODIPine BESYLATE 10 MG TABLET PO SCH (08:16)
[2021-01-09] MEDS: RIVAROXABAN 15 MG TABLET PO SCH ×2 (08:16→17:47)
[2021-01-09] MEDS: PRAVASTATIN SODIUM 10 MG TABLET PO SCH (08:16)
[2021-01-09] MEDS: ETHYL ALCOHOL 62% ANTISEPTIC NASAL INHALANT 0.6 ML AMPUL NASAL SCH ×2 (08:18→20:59)
[2021-01-09 10:00] VITALS: BP 115/70
[2021-01-09 13:22] LABS: GLUCOMETER DEV NAME(LOC) 2WR.2B; GLUCOSE,POINT OF CARE 135 MG/DL (70-110)
[2021-01-09 16:10] VITALS: BP 108/62
[2021-01-09] MEDS: INSULIN LISPRO 100 UNITS/ML SQ PRN (17:38)
[2021-01-09] MEDS: SENNA 187 MG TABLET PO SCH ×2 (20:57→21:00)
[2021-01-09 21:47] LABS: GLUCOMETER DEV NAME(LOC) 2WR.2B; GLUCOSE,POINT OF CARE 103 MG/DL (70-110)
[2021-01-09 22:51] LABS: GLUCOMETER DEV NAME(LOC) 2WR.1C; GLUCOSE,POINT OF CARE 155 MG/DL (70-110)
[2021-01-10 05:01] VITALS: BP 117/72
[2021-01-10 06:39] LABS: GLUCOMETER DEV NAME(LOC) 2WR.1C; GLUCOSE,POINT OF CARE 115 MG/DL (70-110)
[2021-01-10] MEDS: RIVAROXABAN 15 MG TABLET PO SCH (07:57)
[2021-01-10] MEDS: MetFORMIN HCL 500 MG TABLET PO SCH (07:57)
[2021-01-10] MEDS: AmLODIPine BESYLATE 10 MG TABLET PO SCH (07:58)
[2021-01-10] MEDS: FAMOTIDINE 20 MG TABLET PO SCH (07:58)
[2021-01-10] MEDS: PRAVASTATIN SODIUM 10 MG TABLET PO SCH (07:58)
[2021-01-10] MEDS: UBIDECARENONE 100 MG CAPSULE PO SCH (07:58)
[2021-01-10] MEDS: DOCUSATE SODIUM 250 MG CAPSULE PO SCH (07:58)
[2021-01-10] MEDS: LISINOPRIL 20 MG TABLET PO SCH (07:58)
[2021-01-10] MEDS: POLYETHYLENE GLYCOL 3350 17 GM PACKET PO SCH (07:59)
[2021-01-10] MEDS: ETHYL ALCOHOL 62% ANTISEPTIC NASAL INHALANT 0.6 ML AMPUL NASAL SCH (07:59)
[2021-01-10 08:40] VITALS: BP 112/63
[2021-01-10] MEDS ORDERED: RIVA20TA PO (10:18)
[2021-01-10 14:50] LABS: GLUCOMETER DEV NAME(LOC) 2WR.2B; GLUCOSE,POINT OF CARE 97 MG/DL (70-110)
== END 2021-01-10 14:25 | disposition home or self-care (01) | DRG 58 ==
LOC: 2WR 10:47
PROVIDERS: ADMIT Physical Medicine & Rehabilitation; ATTEND Physical Medicine & Rehabilitation
DX: I69.351 Hemiplegia and hemiparesis following cerebral infarction affecting right dominant side (principal); I63.9 Cerebral infarction, unspecified; I82.402 Acute embolism and thrombosis of unspecified deep veins of left lower extremity; D63.8 Anemia in other chronic diseases classified elsewhere; E11.65 Type 2 diabetes mellitus with hyperglycemia; D64.9 Anemia, unspecified; I69.354 Hemiplegia and hemiparesis following cerebral infarction affecting left non-dominant side; R47.01 Aphasia; E55.9 Vitamin D deficiency, unspecified; G31.84 Mild cognitive impairment of uncertain or unknown etiology; R47.1 Dysarthria and anarthria; I10 Essential (primary) hypertension; E78.5 Hyperlipidemia, unspecified; G89.29 Other chronic pain; M54.5 Low back pain; M54.9 Dorsalgia, unspecified; J45.909 Unspecified asthma, uncomplicated; F84.5 Asperger's syndrome; K59.00 Constipation, unspecified; Z86.16 Personal history of COVID-19; Z79.01 Long term (current) use of anticoagulants
CPT/HCPCS: 74019; 80053; 80061; 82306; 82550; 82962; 84550; 85025; 87081; 92507; 92523; 93925; 93970; 97110; 97112; 97116; 97163; 97166; 97530; 97535; 99366; Q0162; Q9967

== ENCOUNTER 2023-10-05 12:37 | Emergency (ER) | payer MEDICARE, OTHER ==
[~2023-10-05] VITALS: Ht 188 cm; Wt 98.1 kg
[~2023-10-05 12:37] MED LIST changes: -ATOR40TA28 PO; +DOCU-385 PO; +FAMO20 PO; -GLIP10 PO; +METF-1211 PO; -METF-960 PO; -PIOG30TA10 PO; +POLY17PO47 PO; +PRAV10TA39 PO; +RIVA15TA PO; +RIVA20TA PO; +SENN8.6T90 PO; +UBID100C63 PO
[2023-10-05 13:00] VITALS: TEMP 97.7
[2023-10-05 16:11] LABS: GLUCOMETER DEV NAME(LOC) ER.7; GLUCOSE,POINT OF CARE 102 MG/DL (70-110)
[2023-10-05 17:26] LABS: COVID AG,FIA SOURCE NASAL SWAB
[2023-10-05 17:42] LABS: INFLUENZA TYPE A NEGATIVE FOR TYPE A (NEGATIVE); INFLUENZA TYPE B NEGATIVE FOR TYPE B (NEGATIVE); SARS-COV2 (COVID) ANTIGEN,FIA Negative (Negative)
[2023-10-05 17:50] LABS: BASOPHILS % (AUTO) 0.8 % (0.0-2.0); EOSINOPHILS % (AUTO) 7.6 % (1.0-6.0); HEMATOCRIT 37.3 % (41-53); LYMPHOCYTES # (AUTO) 1.4 K/uL (1.0-4.8); LYMPHOCYTES % (AUTO) 29.8 % (22.0-44.0); MEAN CORPUSCULAR HEMOGLOBIN 27.1 pg (26.0-34.0); MEAN CORPUSCULAR HGB CONC 32.1 G/dL (31.0-37.0); MEAN CORPUSCULAR VOLUME 84 fL (80-100); MONOCYTES # (AUTO) 0.5 K/uL (0.1-1.0); MONOCYTES % (AUTO) 10.2 % (2.0-9.0); NEUTROPHILS # (AUTO) 2.5 K/uL (1.8-7.7); NEUTROPHILS % (AUTO) 51.6 % (40.0-70.0); PLATELET COUNT (AUTO) 219 K/uL (150-450); RED BLOOD CELL COUNT(AUTO) 4.43 MIL/uL (4.50-5.90); WHITE BLOOD COUNT (AUTO) 4.8 K/uL (4.5-11.0)
[2023-10-05 17:59] LABS: CALCIUM, TOTAL 9.3 mg/dL (8.8-10.5); CREATININE 2.74 mg/dL (0.60-1.30); POTASSIUM 5.1 mmol/L (3.5-5.1)
[2023-10-05 18:05] LABS: ALBUMIN 3.5 g/dL (3.4-5.0); BILIRUBIN,TOTAL 0.3 mg/dL (0.1-1.0); TOTAL PROTEIN, SERUM 7.6 g/dL (6.4-8.2)
[2023-10-05 18:07] LABS: TROPONIN I-HIGH SENSITIVITY Less Than 4 ng/L (<76)
[2023-10-05 18:18] VITALS: BP 118/69; PULSE 89; RESP 18
[2023-10-05] MEDS ORDERED: AZIT-104 PO (18:27)
[2023-10-05] MEDS: AZITHROMYCIN 500 MG TABLET PO ONE (18:35)
[2023-10-05] MEDS: DEXAMETHASONE 4 MG TABLET PO ONE (18:35)
[2023-10-05] MEDS: ACETAMINOPHEN 325 MG TABLET PO ONE (18:36)
== END 2023-10-05 18:57 | disposition home or self-care (01) ==
LOC: EMS 12:37
DX: J12.9 Viral pneumonia, unspecified (principal); E11.9 Type 2 diabetes mellitus without complications; E78.00 Pure hypercholesterolemia, unspecified; I10 Essential (primary) hypertension; Z88.0 Allergy status to penicillin; Z88.6 Allergy status to analgesic agent; Z91.010 Allergy to peanuts; Z91.030 Bee allergy status; Z20.822 Contact with and (suspected) exposure to COVID-19
CPT/HCPCS: 99285; 71046; 87426; 80053; 82962; 83880; 84484; 85025; 87804; 36415; 93005; J8540; Q9967